=== PATIENT | female | born 2000 | race Caucasian/White ===

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

== ENCOUNTER → 2022-01-24 | Outpatient (CLI) | payer MEDICAID ==
[~2022-01-24] MED LIST changes: -DCS100C PO; +DOCU-239 PO
== END ==
LOC: CARD 16:00
PROVIDERS: ATTEND Family Medicine
DX: R00.2 Palpitations (principal)
CPT/HCPCS: 93005

== ENCOUNTER 2022-02-20 09:19 | Emergency (ER) | payer MEDICAID ==
[~2022-02-20] VITALS: Ht 172.7 cm; Wt 60.3 kg
[2022-02-20] MEDS ORDERED: NS IV 500 ML 500 ML IV ONE (09:45)
--- NOTE | 2022-02-20 09:52 | ED Chest Pain ---
General Chief Complaint: Chest Wall Stated Complaint: SOA - TIGHTNESS IN CHEST Source: patient Exam Limitations: no limitations History of Present Illness Date Seen by Provider: Feb 20, 2022 Time Seen by Provider: 09:30 Initial Comments Patient to ER by private conveyance with chest tightness, shortness of air, rates it as 7 out of 10 worse with deep inspiration since , 3 days ago. She went to [facility] yesterday and they told her it was allergies. No chest x-ray or testing. 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 No fevers or chills but she has had some body aches. No nausea vomiting diarrhea. She has a Mirena in place. She does not smoke but she uses vaporizers occasionally. She denies recreational drug use or alcohol use. No history of personal or family history of blood clotting disorder, DVTs, increased swelling or pain in extremities. No recent surgeries, periods of immobility or illness. No hemoptysis. She follows with Dr. Raines for primary care and has been experiencing episodes of rapid heart rate for the past 3 to 4 months. She has discussed POTS with him. Allergies and Home Medications Allergies Coded Allergies: No Known Drug Allergies (Unverified , 09/11/15) Patient Home Medication List Home Medication List Reviewed: Yes Ferrous Sulfate (Iron) 325 Mg Tablet, 325 MG PO BID Prescribed by: ZITA RAINES on 10/01/201751 Ibuprofen (Ibu) 600 Mg Tablet, 600 MG PO Q6HR Prescribed by: ZITA RAINES on 10/01/201751 Ondansetron (Ondansetron Odt) 4 Mg Tab.rapdis, 4 MG PO Q6H PRN for NAUSEA/VOMITING Prescribed by: ADAM LITTLE on 12/19/202233 Review of Systems Review of Systems Constitutional: No chills, No diaphoresis EENTM: No Blurred Vision, No Double Vision Respiratory: Denies Cough; Shortness of Air Cardiovascular: Chest Pain (On deep inspiration); Denies Edema Gastrointestinal: Denies Abdominal Pain, Denies Nausea Genitourinary: Denies Burning, Denies Discharge Musculoskeletal: No back pain, No joint pain Psychiatric/Neurological: Denies Anxiety, Denies Depressed All Other Systems Reviewed Negative Unless Noted: Yes Past Lduqijt-Crbyvw-Kacglx Hx Patient Social History Tobacco Use?: No Use of E-Cig and/or Vaping dev: Yes E-Cig or Vaping type used: Nicotine Substance use?: No Immunizations Up To Date Tetanus Booster (TDap): Unknown PED Vaccines UTD: Yes Seasonal Allergies Seasonal Allergies: No Past Medical History Surgeries: Yes (Corrective eye surgery 2015, DENTAL) Eye Surgery Respiratory: No Cardiac: No Neurological: No 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 Disorders: No Female 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 Disorders: 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 Sexually Transmitted Disease: No Genitourinary: No Gastrointestinal: No Musculoskeletal: No Endocrine: No HEENT: No Cancer: No Psychosocial: Yes Anxiety, Depression Integumentary: No Blood Disorders: No Adverse Reaction/Blood Tranf: No Family Medical History Anxiety disorder 19 FATHER, Onset:Unknown FH: depression 19 FATHER, Onset:Unknown PTSD 21 FATHER, Onset:Unknown Physical Exam Vital Signs Vital Signs - First Documented 02/20/22 02/20/22 09:46 09:55 Temp 37.0 Pulse 100 114 105 Resp 16 B/P (MAP) 112/69 105/68 111/73 Pulse Ox 100 O2 Delivery Room Air Capillary Refill : Height, Weight, BMI Height: 5'4.00" Weight: 145lbs. 2.0oz. 65.891945pj; 25.00 BMI Method:Stated General Appearance: No Apparent Distress, WD/WN HEENT: PERRL/EOMI, Pharynx Normal, Moist Mucous Membranes Neck: Full Range of Motion, Normal Inspection Respiratory: Lungs Clear, Normal Breath Sounds, No Accessory Muscle Use, No Respiratory Distress Cardiovascular: Regular Rate, Rhythm, No Edema, Normal Peripheral Pulses, Tachycardia Gastrointestinal: Normal Bowel Sounds, Non Tender, Soft Extremity: Normal Capillary Refill, Normal Inspection, No Pedal Edema Neurologic/Psychiatric: Alert, Oriented x3, No Motor/Sensory Deficits Skin: Normal Color, Warm/Dry Progress/Results/Core Measures Results/Orders Lab Results Laboratory Tests Test 02/20/22 10:00 02/20/22 10:07 Range/Units SARS-CoV-2 RNA (RT-PCR) Not Detected Not Detecte White Blood Count 5.3 4.3-11.0 10^3/uL Red Blood Count 4.26 3.80-5.11 10^6/uL Hemoglobin 12.6 11.5-16.0 g/dL Hematocrit 38 35-52 % Mean Corpuscular Volume 89 80-99 fL Mean Corpuscular Hemoglobin 30 25-34 pg Mean Corpuscular Hemoglobin Concent 33 32-36 g/dL Red Cell Distribution Width 12.7 10.0-14.5 % Platelet Count 209 130-400 10^3/uL Mean Platelet Volume 9.4 9.0-12.2 fL Immature Granulocyte % (Auto) 0 % Neutrophils (%) (Auto) 61 42-75 % Lymphocytes (%) (Auto) 27 12-44 % Monocytes (%) (Auto) 8 0-12 % Eosinophils (%) (Auto) 3 0-10 % Basophils (%) (Auto) 1 0-10 % Neutrophils # (Auto) 3.3 1.8-7.8 10^3/uL Lymphocytes # (Auto) 1.4 1.0-4.0 10^3/uL Monocytes # (Auto) 0.5 0.0-1.0 10^3/uL Eosinophils # (Auto) 0.2 0.0-0.3 10^3/uL Basophils # (Auto) 0.0 0.0-0.1 10^3/uL Immature Granulocyte # (Auto) 0.0 0.0-0.1 10^3/uL D-Dimer < 0.27 0.00-0.49 UG/ML Sodium Level 139 135-145 MMOL/L Potassium Level 3.7 3.6-5.0 MMOL/L Chloride Level 104 98-107 MMOL/L Carbon Dioxide Level 24 21-32 MMOL/L Anion Gap 11 5-14 MMOL/L Blood Urea Nitrogen 15 7-18 MG/DL Creatinine 0.84 0.60-1.30 MG/DL Estimat Glomerular Filtration Rate 103 BUN/Creatinine Ratio 18 Glucose Level 92 70-105 MG/DL Calcium Level 9.1 8.5-10.1 MG/DL Troponin I < 0.028 <0.028 NG/ML C-Reactive Protein High Sensitivity 0.03 0.00-0.50 MG/DL My Orders Orders - ADAM LITTLE Ekg Tracing (02/20/22 09:22) Continuous Ekg Monitoring (02/20/22 09:22) Ed Iv/Invasive Line Start (02/20/22 09:44) Ns Iv 500 Ml (Sodium Chloride 0.9%) (02/20/22 09:45) Cbc With Automated Diff (02/20/22 09:44) Basic Metabolic Panel (02/20/22 09:44) Troponin I [place] (02/20/22 09:44) Fibrin Degradation Products (02/20/22 09:44) Hs C Reactive Protein (02/20/22 09:44) Covid 19 Inhouse Test (02/20/22 09:44) Chest Pa/Lat (2 View) (02/20/22 09:44) Medications Given in ED Current Medications Medications Dose Ordered Sig/Adonis Route Start Time Stop Time Status Last Admin Dose Admin Sodium Chloride 500 ml @ 0 mls/hr Q0M ONCE IV 02/20/22 09:45 02/20/22 09:47 DC 02/20/22 10:17 999 MLS/HR Vital Signs/I&O 02/20/22 02/20/22 09:46 09:55 Temp 37.0 Pulse 100 92 114 105 Resp 16 B/P (MAP) 112/69 130/85 (100) 105/68 111/73 Pulse Ox 100 O2 Delivery Room Air Progress Progress Note #1: Time: 09:56 Progress Note Well's Score for PE: 1.5 points; Low risk group: 1.3% chance of PE in an ED population. PERC rule: 1 criteria. Discussed risks, benefits and alternatives and the patient would like to pursue a D-dimer at this time. Plan to get a chest x-ray and some labs to rule out myocarditis. Likely she has pleurisy related to a viral syndrome. COVID swab. Orthos do demonstrate increased tachycardia from 100-114 when sitting up. She does not cross the line for orthostasis. P.o. fluids Progress Note #2: Time: 11:16 Progress Note Patient is feeling better after the IV fluids. She is taking oral fluids. Plan to send her home with precautions for pleurisy. She can get naproxen [id number] and follow-up if she is not seeing improvement in a week. Return precautions were given. Initial ECG Impression Date: Feb 20, 2022 Initial ECG Impression Time: 09:41 Initial ECG Rate: 95 Initial ECG Rhythm: Normal Sinus Initial ECG Intervals: Normal Initial ECG Impression: Normal Initial ECG Comparisson: No Previous ECG Available Comment Normal sinus rhythm without clinically relevant ST elevation or depression Diagnostic Imaging Diagonstic Imaging: Xray Plain Films/CT/US/NM/MRI: chest Comments [facility]. [place], [place] NAME: CELESTINO NEUMANN [facility] REC#: [id number] PT STATUS: REG ER : 2002 PHYSICIAN: ADAM LITTLE MD ADMIT DATE: 02/20/22/ER Draft Date of Exam:02/20/22 CHEST PA/LAT (2 VIEW) EXAM: PA and lateral chest at 10:59 AM INDICATION: Shortness of breath COMPARISON: 12/19/2020. FINDINGS: The heart size is stable when compared to the prior exam. The lungs are clear. There is no evidence for failure, pneumonia or for a pleural effusion. The mediastinum is not widened. The osseous structures are intact. IMPRESSION: There is no evidence for active disease. Dictated on workstation # [id number] Dict: 02/20/22 1102 Trans: 02/20/22 1104 [facility] [id number] Interpreted by: ADAM VALIENTE MD Electronically signed by: Reviewed: Reviewed by Me Departure Impression Primary Impression: Pleurisy without effusion Disposition: HOME, SELF-CARE Condition: Stable Departure-Patient Inst. Decision time for Depature: 11:17 Referrals: ZITA RAINES MD (PCP/Family) Primary Care Physician Patient Instructions: Pleuritic Chest Pain (DC) Add. Discharge Instructions: I suspect you have inhaled something such as a virus, dust particles or allergen that has irritated the lining of your lung and chest wall which is resulting in your presentation today. Typically your body will take care of this and able get better in 1 to 2 weeks. You can use naproxen 1 to 2 tablets twice a day as necessary for pain or tightness. Vapor rub such as Vicks or Mentholatum may also be helpful for the symptoms. If you not seeing improvement in 1 week then follow-up with Dr. Raines for reevaluation. Return to the ER promptly for severe chest pain doubling you over, shortness of breath unable to catch her breath or other worrisome symptoms. All discharge instructions reviewed with patient and/or family. Voiced understanding. Work/School Note: Work Release Form Date Seen in the Emergency Department: Feb 20, 2022 Return to Work: Feb 21, 2022 Restrictions: No Restrictions ADAM LITTLE Feb 20, 2022 09:52
[2022-02-20 09:55] VITALS: BP 130/85
[2022-02-20 10:15] LABS: BASOPHILS % (AUTO) 1 % (0-10); EOSINOPHILS # (AUTO) 0.2 10^3/uL (0.0-0.3); EOSINOPHILS % (AUTO) 3 % (0-10); HEMATOCRIT 38 % (35-52); HEMOGLOBIN 12.6 g/dL (11.5-16.0); LYMPHOCYTES # (AUTO) 1.4 10^3/uL (1.0-4.0); LYMPHOCYTES % (AUTO) 27 % (12-44); MEAN CORPUSCULAR HEMOGLOBIN 30 pg (25-34); MEAN CORPUSCULAR HGB CONC 33 g/dL (32-36); MEAN CORPUSCULAR VOLUME 89 fL (80-99); MEAN PLATELET VOLUME 9.4 fL (9.0-12.2); MONOCYTES # (AUTO) 0.5 10^3/uL (0.0-1.0); MONOCYTES % (AUTO) 8 % (0-12); NEUTROPHILS # (AUTO) 3.3 10^3/uL (1.8-7.8); NEUTROPHILS % (AUTO) 61 % (42-75); PLATELET COUNT 209 10^3/uL (130-400); WHITE BLOOD COUNT 5.3 10^3/uL (4.3-11.0)
[2022-02-20 10:34] LABS: CHLORIDE 104 MMOL/L (98-107); POTASSIUM 3.7 MMOL/L (3.6-5.0); SODIUM 139 MMOL/L (135-145)
[2022-02-20 10:35] LABS: CALCIUM 9.1 MG/DL (8.5-10.1); GLUCOSE 92 MG/DL (70-105)
[2022-02-20 10:37] LABS: CARBON DIOXIDE 24 MMOL/L (21-32)
[2022-02-20 10:39] LABS: CREATININE SERUM 0.84 MG/DL (0.60-1.30); GFR ESTIMATED 103
[2022-02-20 10:40] LABS: BUN/CREATININE RATIO 18
--- NOTE | 2022-02-20 11:05 | Diagnostic Imaging Report ---
EXAM: PA and lateral chest at 10:59 AM INDICATION: Shortness of breath COMPARISON: 12/19/2020. FINDINGS: The heart size is stable when compared to the prior exam. The lungs are clear. There is no evidence for failure, pneumonia or for a pleural effusion. The mediastinum is not widened. The osseous structures are intact. IMPRESSION: There is no evidence for active disease. Dictated by: Dictated on workstation # [id number]
== END 2022-02-20 11:49 | disposition home or self-care (01) ==
LOC: EDUNIT# 09:19 → ER 09:21
DX: R09.1 Pleurisy (principal); F17.290 Nicotine dependence, other tobacco product, uncomplicated; Z20.822 Contact with and (suspected) exposure to COVID-19
CPT/HCPCS: 36415; 71046; 80048; 84484; 85025; 85379; 86141; 87636; 93005

== ENCOUNTER 2022-09-10 22:42 | Emergency (ER) | payer MEDICAID ==
[~2022-09-10] VITALS: Ht 168 cm; Wt 60.3 kg
[2022-09-10] MEDS ORDERED: ONDANSETRON 4 MG/2 ML (SDV) Z0FRAN ONE (22:54)
[2022-09-10] MEDS ORDERED: MIRT-68 (22:58)
[2022-09-10] MEDS ORDERED: BUPR100T15 (22:58)
[2022-09-10 22:59] LABS: BASOPHILS % (AUTO) 1 % (0-10); BILIRUBIN,URINE NEGATIVE (NEGATIVE); CLARITY,URINE CLEAR; COLOR,URINE YELLOW; EOSINOPHILS # (AUTO) 0.2 10^3/uL (0.0-0.3); EOSINOPHILS % (AUTO) 3 % (0-10); GLUCOSE, URINE (UA) NEGATIVE (NEGATIVE); HEMATOCRIT 39 % (35-52); KETONES,URINE NEGATIVE (NEGATIVE); LEUKOCYTE ESTERASE ,URINE NEGATIVE (NEGATIVE); LYMPHOCYTES # (AUTO) 3.6 10^3/uL (1.0-4.0); LYMPHOCYTES % (AUTO) 48 % (12-44); MEAN CORPUSCULAR HEMOGLOBIN 30 pg (25-34); MEAN CORPUSCULAR HGB CONC 34 g/dL (32-36); MEAN CORPUSCULAR VOLUME 88 fL (80-99); MEAN PLATELET VOLUME 9.3 fL (9.0-12.2); MONOCYTES # (AUTO) 0.7 10^3/uL (0.0-1.0); MONOCYTES % (AUTO) 9 % (0-12); NEUTROPHILS % (AUTO) 40 % (42-75); NITRITE,URINE NEGATIVE (NEGATIVE); PLATELET COUNT 218 10^3/uL (130-400); PROTEIN,URINE NEGATIVE (NEGATIVE); WHITE BLOOD COUNT 7.5 10^3/uL (4.3-11.0)
[2022-09-10] MEDS ORDERED: LACTATED RINGERS 1,000 ML IV ONE (23:00)
[2022-09-10 23:11] LABS: ALBUMIN 4.4 GM/DL (3.2-4.5); BACTERIA,URINE TRACE /HPF; POTASSIUM 2.6 MMOL/L (3.6-5.0); SQUAMOUS EPITHELIAL CELL,UR 0-2 /HPF; WBC,URINE RARE /HPF
[2022-09-10 23:13] LABS: AMPHETAMINE SCREEN, URINE NEGATIVE (NEGATIVE); BARBITURATE SCREEN URINE NEGATIVE (NEGATIVE); BENZODIAZEPINES SCREEN URINE NEGATIVE (NEGATIVE); CALCIUM 9.1 MG/DL (8.5-10.1); CANNABINOID SCREEN, URINE NEGATIVE (NEGATIVE); COCAINE SCREEN URINE NEGATIVE (NEGATIVE); METHADONE STAT NEGATIVE (NEGATIVE); OPIATE SCREEN URINE NEGATIVE (NEGATIVE); OXYCODONE STAT NEGATIVE (NEGATIVE); PROPOXYPHENE STAT NEGATIVE (NEGATIVE); TRICYCLIC ANTIDEPRESSANTS SCRE NEGATIVE (NEGATIVE)
[2022-09-10 23:14] LABS: TOTAL PROTEIN 7.1 GM/DL (6.4-8.2)
[2022-09-10 23:15] LABS: BILIRUBIN,TOTAL 0.4 MG/DL (0.1-1.0)
[2022-09-10 23:17] LABS: CREATININE SERUM 1.2 MG/DL (0.60-1.30)
[2022-09-10] MEDS ORDERED: RX-ONDANSETRON 4 MG ODT (ZOFRAN) PPK #4 PO STA (23:48)
--- NOTE | 2022-09-10 23:48 | ED General ---
General Chief Complaint: Substance Abuse Stated Complaint: SEIZURE Nursing Triage Note: BROUGHT IN BY [facility] FOR ETOH INTAKE, POSSIBLE SEIZURE. Allergies and Home Medications Allergies Coded Allergies: No Known Drug Allergies (Unverified , 09/11/15) Patient Home Medication List Bupropion HCl (Bupropion HCl) 100 Mg Tablet, (Reported) Entered as Reported by: OSMAR GOTTI on 09/10/222257 Last Action: New Order Ferrous Sulfate (Iron) 325 Mg Tablet, 325 MG PO BID Prescribed by: IZTA RAINES on 10/01/20 175 Ibuprofen (Ibu) 600 Mg Tablet, 600 MG PO Q6HR Prescribed by: ZITA RAINES on 10/01/20 175 Mirtazapine (Mirtazapine) 15 Mg Tablet, (Reported) Entered as Reported by: OSMAR GOTTI on 09/10/222257 Last Action: New Order Ondansetron (Ondansetron Odt) 4 Mg Tab.rapdis, 4 MG PO Q6H PRN for NAUSEA/VOMITING Prescribed by: ADAM LITTLE on 12/19/202233 Past Gknmaes-Hruhes-Ljxmrw Hx Patient Social History Tobacco Use?: No Substance use?: No Alcohol Use?: Yes Pt feels they are or have been: No Immunizations Up To Date Tetanus Booster (TDap): Unknown PED Vaccines UTD: Yes Seasonal Allergies Seasonal Allergies: No Past Medical History Surgery/Hospitalization HX: DEPRESSION Surgeries: Yes (Corrective eye surgery 2015, DENTAL) Eye Surgery Respiratory: No Cardiac: No Neurological: No 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 Disorders: No Female 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 Disorders: 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 Sexually Transmitted Disease: No Genitourinary: No Gastrointestinal: No Musculoskeletal: No Endocrine: No HEENT: No Cancer: No Psychosocial: Yes Anxiety, Depression Integumentary: No Blood Disorders: No Adverse Reaction/Blood Tranf: No Family Medical History Anxiety disorder 19 FATHER, Onset:Unknown FH: depression 19 FATHER, Onset:Unknown PTSD 19 FATHER, Onset:Unknown Physical Exam Vital Signs Vital Signs - First Documented 09/10/22 22:43 Temp 36.6 Pulse 89 Resp 18 B/P (MAP) 113/67 (82) Pulse Ox 98 O2 Delivery Room Air Capillary Refill : Less Than 3 Seconds Height, Weight, BMI Height: 5'4.00" Weight: 145lbs. 2.0oz. 65.497618gn; 21.00 BMI Method:Stated Progress/Results/Core Measures Suspected Sepsis SIRS Temperature: Pulse: 89 Respiratory Rate: 18 Laboratory Tests 09/10/22 22:50: White Blood Count 7.5 Blood Pressure 113 /67 Mean: 82 Laboratory Tests 09/10/22 22:50: Creatinine 1.20, Platelet Count 218, Total Bilirubin 0.4 Results/Orders Lab Results Laboratory Tests Test 09/10/22 22:50 Range/Units White Blood Count 7.5 4.3-11.0 10^3/uL Red Blood Count 4.37 3.80-5.11 10^6/uL Hemoglobin 13.0 11.5-16.0 g/dL Hematocrit 39 35-52 % Mean Corpuscular Volume 88 80-99 fL Mean Corpuscular Hemoglobin 30 25-34 pg Mean Corpuscular Hemoglobin Concent 34 32-36 g/dL Red Cell Distribution Width 12.6 10.0-14.5 % Platelet Count 218 130-400 10^3/uL Mean Platelet Volume 9.3 9.0-12.2 fL Immature Granulocyte % (Auto) 0 % Neutrophils (%) (Auto) 40 L 42-75 % Lymphocytes (%) (Auto) 48 H 12-44 % Monocytes (%) (Auto) 9 0-12 % Eosinophils (%) (Auto) 3 0-10 % Basophils (%) (Auto) 1 0-10 % Neutrophils # (Auto) 3.0 1.8-7.8 10^3/uL Lymphocytes # (Auto) 3.6 1.0-4.0 10^3/uL Monocytes # (Auto) 0.7 0.0-1.0 10^3/uL Eosinophils # (Auto) 0.2 0.0-0.3 10^3/uL Basophils # (Auto) 0.0 0.0-0.1 10^3/uL Immature Granulocyte # (Auto) 0.0 0.0-0.1 10^3/uL Urine Color YELLOW Urine Clarity CLEAR Urine pH 6.0 5-9 Urine Specific [place] 1.025 H 1.016-1.022 Urine Protein NEGATIVE NEGATIVE Urine Glucose (UA) NEGATIVE NEGATIVE Urine Ketones NEGATIVE NEGATIVE Urine Nitrite NEGATIVE NEGATIVE Urine Bilirubin NEGATIVE NEGATIVE Urine Urobilinogen 0.2 < = 1.0 MG/DL Urine Leukocyte Esterase NEGATIVE NEGATIVE Urine RBC (Auto) NEGATIVE NEGATIVE Urine RBC NONE /HPF Urine WBC RARE /HPF Urine Squamous Epithelial Cells 0-2 /HPF Urine Crystals NONE /LPF Urine Bacteria TRACE /HPF Urine Casts NONE /LPF Urine Mucus SMALL H /LPF Urine Culture Indicated NO Sodium Level 144 135-145 MMOL/L Potassium Level 2.6 L 3.6-5.0 MMOL/L Chloride Level 113 H 98-107 MMOL/L Carbon Dioxide Level 17 L 21-32 MMOL/L Anion Gap 14 5-14 MMOL/L Blood Urea Nitrogen 19 H 7-18 MG/DL Creatinine 1.20 0.60-1.30 MG/DL Estimat Glomerular Filtration Rate 66 BUN/Creatinine Ratio 16 Glucose Level 102 70-105 MG/DL Calcium Level 9.1 8.5-10.1 MG/DL Corrected Calcium 8.8 8.5-10.1 MG/DL Total Bilirubin 0.4 0.1-1.0 MG/DL Aspartate Amino Transf (AST/SGOT) 17 5-34 U/L Alanine Aminotransferase (ALT/SGPT) 13 0-55 U/L Alkaline Phosphatase 55 40-136 U/L Total Protein 7.1 6.4-8.2 GM/DL Albumin 4.4 3.2-4.5 GM/DL Serum Test, Qualitative NEGATIVE NEGATIVE Urine Opiates Screen NEGATIVE NEGATIVE Urine Oxycodone Screen NEGATIVE NEGATIVE Urine Methadone Screen NEGATIVE NEGATIVE Urine Propoxyphene Screen NEGATIVE NEGATIVE Urine Barbiturates Screen NEGATIVE NEGATIVE Ur Tricyclic Antidepressants Screen NEGATIVE NEGATIVE Urine Phencyclidine Screen NEGATIVE NEGATIVE Urine Amphetamines Screen NEGATIVE NEGATIVE Urine Methamphetamines Screen NEGATIVE NEGATIVE Urine Benzodiazepines Screen NEGATIVE NEGATIVE Urine Cocaine Screen NEGATIVE NEGATIVE Urine Cannabinoids Screen NEGATIVE NEGATIVE Serum Alcohol 236 H <10 MG/DL My Orders Orders - KADEN GIRARD DO Ed Iv/Invasive Line Start (09/10/22 22:48) Monitor-Rhythm Ecg Trace Only (09/10/22 22:48) Alcohol (09/10/22 22:48) Cbc With Automated Diff (09/10/22 22:48) Comprehensive Metabolic Panel (09/10/22 22:48) Drug Screen Stat (Urine) (09/10/22 22:48) Hcg,Qualitative Serum (09/10/22 22:48) Ua Culture If Indicated (09/10/22 22:48) Ed Iv/Invasive Line Start (09/10/22 22:48) Lactated Ringers (Lr 1000 Ml Iv Solution (09/10/22 23:00) Ondansetron Injection (Zofran Injectio (09/10/22 22:54) Rx-Ondansetron Po (Rx-Zofran Po) (09/10/22 23:48) Medications Given in ED Current Medications Medications Dose Ordered Sig/Adonis Route Start Time Stop Time Status Last Admin Dose Admin Lactated Ringer's 1,000 ml @ 0 mls/hr Q0M ONCE IV 09/10/22 23:00 09/10/22 23:01 DC 09/10/22 22:56 0 MLS/HR Ondansetron HCl 4 mg STK-MED ONCE .ROUTE 09/10/22 22:54 09/10/22 22:57 DC 09/10/22 23:04 8 MG Vital Signs/I&O 09/10/22 22:43 Temp 36.6 Pulse 89 Resp 18 B/P (MAP) 113/67 (82) Pulse Ox 98 O2 Delivery Room Air 09/11/22 00:00 Intake Total 100 ml Balance 100 ml Capillary Refill : Less Than 3 Seconds Blood Pressure Mean: 82 Departure Impression Primary Impression: Acute alcoholic intoxication Disposition: HOME, SELF-CARE Condition: Stable Departure-Patient Inst. Decision time for Depature: 23:44 Referrals: ZITA RAINES MD (PCP/Family) Primary Care Physician Patient Instructions: ALCOHOL AND SUBSTANCE ABUSE, Alcohol Intoxication ED Add. Discharge Instructions: HOME, REST LOTS OF CLEAR LIQUIDS, SIPS AT A TIME--WATER, BROTH, JELLO, GATORADE BRATS DIET--BANANAS, RICE, APPLESAUCE, TOAST, SALTINES NO ALCOHOL TAKE YOUR REGULAR MEDICATIONS PRESCRIBED FOLLOW UP WITH YOUR DR NEEDED, RETURN TO ER IF SYMPTOMS WORSEN All discharge instructions reviewed with patient and/or family. Voiced understanding. KADEN GIRARD DO Sep 10, 2022 23:48
[2022-09-11 00:14] VITALS: BP 94/63
== END 2022-09-11 00:14 | disposition home or self-care (01) ==
LOC: EDUNIT# 22:42 → ER 22:44
DX: F10.229 Alcohol dependence with intoxication, unspecified (principal); Y90.7 Blood alcohol level of 200-239 mg/100 ml; Z28.310 Unvaccinated for COVID-19
CPT/HCPCS: 36415; 80053; 80306; 80320; 81000; 84703; 85025; 93041; 96374

== ENCOUNTER 2023-01-15 19:38 | Emergency (ER) | payer MEDICAID ==
[~2023-01-15] VITALS: Ht 162.6 cm; Wt 63.0 kg
[~2023-01-15 19:38] MED LIST changes: +BUPR100T15; +MIRT-68
--- NOTE | 2023-01-15 20:29 | ED EENT ---
History of Present Illness General Chief Complaint: Oral/Throat Problems Stated Complaint: SWOLLEN UVULA Nursing Triage Note: PT AMB TO ED BY POV WITH C/O SWOLLEN UVULA. PT REPORTS SHE NOTICED SWELLING LAST NIGHT, BEGAN HAVING DIFFICULTY SWOLLOWING TODAY. DENIES DIFFICULTY BREATHING, PAIN, FEVER, OR ANY OTHER SX AT THIS TIME. (LISSA AHUJA) History of Present Illness Date Seen by Provider: January 15, 2023 Time Seen by Provider: 19:46 Initial Comments 22-year-old female presents for pain and swelling in her uvula. She notices it when she swallows. She is able to eat and swallow but with pain. She denies any fever, rash, sore throat or other complaints. Timing/Duration: yesterday Severity: mild Prearrival Treatment: no prearrival treatment Associated Symptoms: No facial pain/swelling, No fever, No malaise, No poor fluid intake, No poor solids intake; sore throat (LISSA AHUJA) Allergies and Home Medications Allergies Coded Allergies: No Known Drug Allergies (Unverified , 09/11/15) Patient Home Medication List Home Medication List Reviewed: Yes (LISSA AHUJA) Amoxicillin (Amoxicillin) 500 Mg Capsule, 500 MG PO TID Prescribed by: LISSA AHUJA on 01/15/232039 Bupropion HCl (Bupropion HCl) 100 Mg Tablet, (Reported) Entered as Reported by: OSMAR GOTTI on 09/10/222257 Ferrous Sulfate (Iron) 325 Mg Tablet, 325 MG PO BID Prescribed by: ZITA RAINES on 10/01/20 175 Ibuprofen (Ibu) 600 Mg Tablet, 600 MG PO Q6HR Prescribed by: ZITA RAINES on 10/01/20 175 Mirtazapine (Mirtazapine) 15 Mg Tablet, (Reported) Entered as Reported by: OSMAR GOTTI on 09/10/222257 Ondansetron (Ondansetron Odt) 4 Mg Tab.rapdis, 4 MG PO Q6H PRN for NAUSEA/VOMITING Prescribed by: ADAM LITTLE on 12/19/202233 Review of Systems Review of Systems Constitutional: no symptoms reported, see HPI Throat: see HPI, pain, swelling (uvla) (LISSA AHUJA) All Other Systems Reviewed Negative Unless Noted: Yes (LISSA AHUJA) Past Yxtjtwi-Boumyn-Pprpvq Hx Immunizations Up To Date Tetanus Booster (TDap): Unknown PED Vaccines UTD: Yes (LISSA AHUJA) Seasonal Allergies Seasonal Allergies: No (LISSA AHUJA) Past Medical History Surgery/Hospitalization HX: DEPRESSION Surgeries: Yes (Corrective eye surgery 2015, DENTAL) Eye Surgery Respiratory: No Cardiac: No Neurological: No 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 Disorders: No Female 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 Disorders: 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 Sexually Transmitted Disease: No Genitourinary: No Gastrointestinal: No Musculoskeletal: No Endocrine: No HEENT: No Cancer: No Psychosocial: Yes Anxiety, Suicide Attempts, Depression Integumentary: No Blood Disorders: No Adverse Reaction/Blood Tranf: No (LISSA AHUJA) Family Medical History Reviewed Nursing Family Hx (LISSA AHUJA) Anxiety disorder 19 FATHER, Onset:Unknown FH: depression 19 FATHER, Onset:Unknown PTSD 19 FATHER, Onset:Unknown Physical Exam Vital Signs Vital Signs - First Documented 01/15/23 19:43 Temp 36.9 Pulse 114 Resp 16 B/P (MAP) 123/77 (92) Pulse Ox 98 O2 Delivery Room Air (EndoDex) Height, Weight, BMI Height: 5'4.00" Weight: 145lbs. 2.0oz. 65.039391vg; 23.00 BMI Method:Stated General Appearance: WD/WN, no apparent distress Nose: normal inspection; No active bleeding, No discharge Mouth/Throat: No dental tenderness, No excessive drooling, No mandibular swelling, No tongue swollen, No tonsillar exudate; uvula swelling (mild), other (pharynx and uvual with moderate erythema, No mass or abscess noted. ) Neck: non-tender, full range of motion, supple, normal inspection; No lymphadenopathy (R) Cardiovascular: normal peripheral pulses, regular rate, rhythm Respiratory: chest non-tender, lungs clear, normal breath sounds Gastrointestinal: normal bowel sounds, non tender, soft Neurologic/Psychiatric: no motor/sensory deficits, alert, normal mood/affect Skin: normal color, warm/dry; No rash (LISSA AHUJA) Progress/Results/Core Measures Results/Orders Lab Results Laboratory Tests Test 01/15/23 19:50 Range/Units Group A Streptococcus Screen POSITIVE H NEGATIVE (SeedfuseA K DO) Blood Pressure Mean: 92 Progress Progress Note : Time: 19:46 Progress Note Patient assessed, will obtain rapid strep test. Denied need for medications. 2019 Rapid strep +. Discharge instructions and return precautions reviewed. (LISSA AHUJA) Departure Impression Primary Impression: Uvular swelling Additional Impression: Strep pharyngitis Disposition: HOME, SELF-CARE Condition: Improved Departure-Patient Inst. Decision time for Depature: 20:15 (LISSA AHUJA) Referrals: ZITA RAINES MD (PCP/Family) Primary Care Physician Patient Instructions: Strep Throat (DC) Add. Discharge Instructions: Salt water gargles every 2-4 hours with warm water. Take antibiotics, as prescribed. Alternate Tylenol 650 mg and Ibuprofen 600 mg every 4 hours for pain or swelling. Throw your tooth brush away in 2 days and use new one. Wash pillow case daily. Follow up with Primary Care, if not improving or worsens. Return to Emergency dept for new, urgent healthcare needs. All discharge instructions reviewed with patient and/or family. Voiced understa nding. Scripts Amoxicillin (Amoxicillin) 500 Mg Capsule 500 MG PO TID, #18 CAP 0 Refills Prov: LISSA AHUJA 01/15/23 ATTENDING PHYSICIAN NOTE: I WAS PHYSICALLY PRESENT ER PHYSICIAN, BUT I WAS NOT INVOLVED IN ANY DECISION MAKING OR ANY CARE OF THIS PATIENT, AND I AM NOT COLLABORATING PHYSICIAN. (KADEN GIRARD DO) LISSA AHUJA January 15, 2023 20:29 KADEN GIRARD DO January 16, 2023 09:02
[2023-01-15] MEDS ORDERED: RX-AMOXICILLIN 500 MG CAP #3 PPK PO STA (20:32)
[2023-01-15] MEDS ORDERED: AMOX500C2 PO ×2 (20:35→20:40)
[2023-01-15 20:57] VITALS: BP 119/81
== END 2023-01-15 20:57 | disposition home or self-care (01) ==
LOC: EDUNIT# 19:38 → ER 19:41
DX: J02.0 Streptococcal pharyngitis (principal)
CPT/HCPCS: 87430; 99283